=== PATIENT | male | born 1945 | race Caucasian/White ===

== ENCOUNTER → 2018-07-04 | Outpatient (CLI) | payer OTHER ==
[~2018-07-04] MED LIST: ACET500; AMIT25 PO
== END | disposition home or self-care (01) ==
LOC: LAB SHORT 07:59 → PLD 07:59
DX: D04.22 Carcinoma in situ of skin of left ear and external auricular canal (principal)
CPT/HCPCS: 88305

== ENCOUNTER → 2020-03-30 | Outpatient (CLI) | payer MEDICARE ==
[~2020-03-30] MED LIST changes: +Amitriptyline H25 MG PO; +ZYRTEC10 M2; +ZYRTEC10 M2 PO
== END ==
LOC: PLD 14:59 → LAB SHORT 14:59
DX: D48.5 Neoplasm of uncertain behavior of skin (principal)
CPT/HCPCS: 88305; 88312

== ENCOUNTER → 2020-06-15 | Outpatient (CLI) | payer MEDICARE | END | disposition home or self-care (01) | LOC: LAB SHORT 12:29 → PLD 12:29 → LAB SHORT 06-16 11:22 | DX: D48.5 Neoplasm of uncertain behavior of skin (principal) | CPT/HCPCS: 88305 ==

== ENCOUNTER 2020-09-25 07:46 | Day surgery (SDC) | payer MEDICARE ==
[~2020-09-25] VITALS: Ht 182.9 cm; Wt 82.8 kg
[~2020-09-25 07:46] MED LIST changes: -ZYRTEC10 M2
--- NOTE | 2020-09-25 08:53 | NUR ---
09/25/20 0853 Olesya Clayton PT. VERBALIZES HAVING ALL OVER PAIN & [place]ST[place] FOR YEARS. PT. RATING A "7" & TAKES TYLENOL FOR THIS. PT. VERBALZIES NOT EATING MAKES HIS [place] WORSE. PT. ALSO C/O CHEST PAIN, DULL, IN WHICH HE SAYS HE HAS ALL THE TIME. CARDIAC WORKUP HAS BEEN DONE IN PAST PER PT. IN WHICH NOTHING WAS FOUND.
[2020-10-13] MEDS ORDERED: ZYRTEC10 M2 (12:43)
== END 2020-09-25 10:06 | disposition home or self-care (01) ==
LOC: ORSCSDS 07:46
PROVIDERS: Internal Medicine Gastroenterology
PROC: 0DBK8ZX Excision of Ascending Colon, Via Natural or Artificial Opening Endoscopic, Diagnostic (ICD-10-PCS; principal; 2020-09-25 09:00)
PROC: 0DBL8ZX Excision of Transverse Colon, Via Natural or Artificial Opening Endoscopic, Diagnostic (ICD-10-PCS; principal; 2020-09-25 09:00)
DX: Z12.11 Encounter for screening for malignant neoplasm of colon (principal); Z86.010 Personal history of colon polyps; D12.3 Benign neoplasm of transverse colon; D12.2 Benign neoplasm of ascending colon; K57.30 Diverticulosis of large intestine without perforation or abscess without bleeding; Z79.899 Other long term (current) drug therapy
CPT/HCPCS: 88305; J0330; J0461; J2405; J2704; J7120

== ENCOUNTER 2020-10-08 07:21 | Day surgery (SDC) | payer MEDICARE ==
[~2020-10-08] VITALS: Ht 182.9 cm; Wt 85.8 kg
--- NOTE | 2020-10-08 07:39 | NUR ---
10/08/20 0739 Yehuda Mason TETRACAINE APPLIED APPLIED TO RIGHT EYE AT 0736 AND PLEDGET APPLIED AT 0737
[2020-10-13] MEDS ORDERED: ZYRTEC10 M2 (12:43)
== END 2020-10-08 09:15 | disposition home or self-care (01) ==
LOC: ORSCSDS 07:21
PROVIDERS: Ophthalmology
PROC: 08RJ3JZ Replacement of Right Lens with Synthetic Substitute, Percutaneous Approach (ICD-10-PCS; principal; 2020-10-08 08:30)
DX: H25.11 Age-related nuclear cataract, right eye (principal); F32.9 Major depressive disorder, single episode, unspecified; Z79.899 Other long term (current) drug therapy
CPT/HCPCS: A9270; J2001; J2250; J3010; J3301; J7040; V2632

== ENCOUNTER 2020-10-21 06:46 | Day surgery (SDC) | payer MEDICARE ==
[~2020-10-21] VITALS: Ht 182.9 cm; Wt 84.4 kg
[~2020-10-21 06:46] MED LIST changes: +ZYRTEC10 M2
== END 2020-10-21 16:47 | disposition home or self-care (01) ==
LOC: ORSCSDS 06:46
PROVIDERS: Ophthalmology
PROC: 08RK3JZ Replacement of Left Lens with Synthetic Substitute, Percutaneous Approach (ICD-10-PCS; principal; 2020-10-21 08:00)
DX: H25.12 Age-related nuclear cataract, left eye (principal); I10 Essential (primary) hypertension; Z79.899 Other long term (current) drug therapy
CPT/HCPCS: J2001; J2250; J3010; J3301; J7040; V2632

== ENCOUNTER 2021-06-04 11:22 | Day surgery (SDC) | payer OTHER ==
[~2021-06-04] VITALS: Ht 182.9 cm; Wt 83.1 kg
--- NOTE | 2021-06-04 13:29 | NUR ---
06/04/21 1329 Bennie Deras BUPIVACAINE 0.5% 30 MLS MIXED WITH EPI 0.15 ML PER ORDER TO MAKE BUPIVACAINE 0.5% 1:200,000 FOR INJECTION AT [facility]ED BY [facility] BY DR DELAROSA. 30 MLS [facility]
== END 2021-06-04 15:15 | disposition home or self-care (01) ==
LOC: ORSCSDS 11:22
PROVIDERS: Podiatrist Foot & Ankle Surgery
PROC: 0QSH04Z Reposition Left Tibia with Internal Fixation Device, Open Approach (ICD-10-PCS; principal; 2021-06-04 12:45)
DX: S82.52XA Displaced fracture of medial malleolus of left tibia, initial encounter for closed fracture (principal); I25.2 Old myocardial infarction; E03.9 Hypothyroidism, unspecified; Z79.899 Other long term (current) drug therapy
CPT/HCPCS: C1713; C1769; J0171; J0690; J1100; J2405; J2704; J3010; J7120

== ENCOUNTER 2024-06-12 09:45 | Day surgery (SDC) | payer OTHER ==
[~2024-06-12] VITALS: Ht 182.9 cm; Wt 81.9 kg
[~2024-06-12 09:45] MED LIST changes: +Lactated Ringer's 1,000 ML IV ONE
[2024-06-12] MEDS ORDERED: DUTA.5 (10:03)
[2024-06-12] MEDS ORDERED: Lactated Ringer's 1,000 ML IV ONE (11:23)
[2024-06-12 17:06] VITALS: BP 152/87
== END 2024-06-12 12:56 | disposition home or self-care (01) ==
LOC: ORSCSDS 09:45
PROVIDERS: Internal Medicine Gastroenterology
PROC: 0DBL8ZX Excision of Transverse Colon, Via Natural or Artificial Opening Endoscopic, Diagnostic (ICD-10-PCS; principal; 2024-06-12 11:15)
PROC: 3E0H8KZ Introduction of Other Diagnostic Substance into Lower GI, Via Natural or Artificial Opening Endoscopic (ICD-10-PCS; principal; 2024-06-12 11:15)
DX: Z12.11 Encounter for screening for malignant neoplasm of colon (principal); D12.3 Benign neoplasm of transverse colon; K57.30 Diverticulosis of large intestine without perforation or abscess without bleeding; Z86.0101 Personal history of adenomatous and serrated colon polyps
CPT/HCPCS: 88305; J7120